=== PATIENT | male | born 1955 | race Caucasian/White ===

== ENCOUNTER 2018-11-27 17:37 | Inpatient (IN) | payer BC, SELFPAY ==
[2018-11-27 18:47] VITALS: BMI 34.5
[2018-11-27] MEDS ORDERED: Ondansetron ODT 4 MG TAB PO PRN (20:23)
[2018-11-27] MEDS ORDERED: Senokot S 8.6-50 MG TAB PO PRN (20:23)
[2018-11-27] MEDS ORDERED: Guaifenesin DM 100-10/5 ML UDCUP PO PRN (20:23)
[2018-11-27] MEDS ORDERED: Ondansetron PF 4 MG/2 ML Vial IVP PRN (20:23)
[2018-11-27] MEDS ORDERED: Acetaminophen 325 MG TAB PO PRN (20:23)
[2018-11-27] MEDS ORDERED: Acetaminophen 650 MG Suppository PR PRN (20:23)
[2018-11-27 21:12] LABS: Band 1 % (5-11); Hemoglobin 17.4 g/dL (14.0-18.0); Lymphocytes 5 % (21-51); MDiff Complete? YES; Mean Corpuscular HGB CONC 32.3 g/dL (32.0-36.0); Mean Corpuscular Hemoglobin 31.3 pg (27.0-31.0); Mean Corpuscular Volume 96.8 fL (78.0-98.0); Mean Platelet Volume 9.3 fL (7.4-10.4); Monocytes 7 % (0-10); Neutrophil 87 % (42-75); Platelet Count 179 thou/uL (130-400); Platelet Morphology Comment Appears Adequate; RBC Distribution Width 12.2 % (11.5-14.5); RBC Morphology Normal; Red Blood Cell (RBC) Count 5.56 mill/uL (4.70-6.10); White Blood Cell (WBC) Count 14.6 thou/uL (4.8-10.8)
[2018-11-27 21:15] LABS: ALT (SGPT) 11 U/L (8-55); AST (SGOT) 13 U/L (5-34); Albumin 3.6 g/dL (3.4-4.8); Alkaline Phosphatase 79 U/L (40-150); Anion Gap 14 mmol/L (10-20); BUN (Urea Nitrogen) 64 mg/dL (8.4-25.7); Bilirubin, Total 0.9 mg/dL (0.2-1.2); Calc. Creatinine Clearance 23 mL/min (70-130); Carbon Dioxide 26 mmol/L (23-31); Chloride 102 mmol/L (98-107); Estimated GFR-MDRD 11; Globulin 2.8 g/dL (2.4-3.5); Glucose 82 mg/dL (80-115); Potassium 4.5 mmol/L (3.5-5.1); Protein, Total 6.4 g/dL (5.8-8.1); Sodium 137 mmol/L (136-145)
[2018-11-27] MEDS: Sodium Chloride 0.9% 1,000 ML IV SCH (22:05)
--- NOTE | 2018-11-28 01:35 | HP ---
CHIEF COMPLAINT: Abdominal pain. PRIMARY CARE PHYSICIAN: None. HISTORY OF PRESENT ILLNESS: Mr. Reid is a 63-year-old male who presented to [facility] in [place], [place] earlier today with complaints of lower abdominal pain, fever and chills since Sunday 5 days ago. He was evaluated in that ER and was found to have acute kidney injury, bilateral nephritis, obstructive uropathy, and leukocytosis. They contacted [facility] doctor, Dr. Madera on the [facility], who agreed to admit the patient for further management. He was then sent over here for admission. Here, his white blood cell count is 14.6. He reports that his abdominal pain is almost all resolved after they put in a Coude and drained his bladder of about 1700 mL per ER records. Here, his creatinine is 5.20. The patient denies any past medical history. Denies having a PCP. Denies having any past medical history. Denies having any allergies. Denies taking any medicine. He does tell me he had a tonsillectomy, adenoidectomy when he was a child and had a broken toe, but that was fit. Currently, on exam, he is in no acute distress and as stated above, feels better after the Thompson was placed, his bladder was decompressed. He denies any back pain. Reports that the pain was all lower abdomen. PAST MEDICAL HISTORY: None. PAST SURGICAL HISTORY: Tonsillectomy and adenoidectomy. FAMILY HISTORY: Denies any significant history contributory to his current admission. SOCIAL HISTORY: Lives at home. Denies any smoking or drug use. Does socially drink, reports about 5 drinks per week. REVIEW OF SYSTEMS: CONSTITUTIONAL: Does report fever and chills for the past 5 days. EYES: Denies any eye pain or any vision changes. ENT: Denies any rhinorrhea or sore throat. CARDIOVASCULAR: Denies chest pain or palpitations. RESPIRATORY: Denies cough or shortness of breath. GI: Does endorse lower abdominal pain. Reports that it would go from the left side to the right side to the middle. Reports that it started 5 days ago on Sunday. Denies any nausea, vomiting, diarrhea, or constipation. : Does report that he had intermittent urinary hesitancy, retention. Reports that he thought he was constipated, had a bowel movement today and urine stream went back to normal. MUSCULOSKELETAL: Denies any back pain, fall, injury, neck pain. SKIN: Denies any rash or skin changes. NEUROLOGIC: Denies dizziness or headache. PHYSICAL EXAMINATION: VITAL SIGNS: Temperature is 97.5, pulse is 101, respiratory rate is 18, pO2 saturations are 97% on room air, and blood pressure is 134/89, CONSTITUTIONAL: The patient appears nontoxic, appears pain free. He is alert and oriented to person, place, and time. HEENT: Head is atraumatic and normocephalic. Eyes; eyelids are normal to inspection. Pupils are equally round and reactive to light. ENT; mouth exam is normal. Mucous membranes are moist. NECK: Normal range of motion. Trachea is midline. RESPIRATORY/CHEST: Breath sounds are clear. Respiratory exam, no findings of respiratory distress. CARDIOVASCULAR: Heart rate, regular rate and rhythm. Heart sounds are normal. ABDOMEN: Currently nontender. Bowel sounds are heard. BACK: Normal inspection. Normal range of motion. No tenderness. EXTREMITIES: Upper extremity; inspection is normal. Normal range of motion. Sensation intact. Radial pulses are equal bilaterally. Lower extremity; normal inspection. Motor strength is normal. Pedal pulses normal bilaterally. NEUROLOGIC: The patient is oriented to person, place, and time. Speech is normal. Gait was not assessed. SKIN: Warm, dry, normal in color. PSYCHIATRIC: The patient has normal affect. PERTINENT LABORATORY DATA: White blood cell count is 14.6, hemoglobin is 17.4, hematocrit is 53.8, and platelet count is 179. BUN is 64, creatinine is 5.20, sodium is 137, potassium 4.5, chloride 102, carbon dioxide 26, gap is 14, estimated GFR is 11, glucose is 82, lactic acid is 1.5, and calcium is 11. Liver enzymes are unremarkable. IMAGING STUDIES: CT findings from [facility]; CT of abdomen and pelvis without IV contrast show significant left perinephric stranding, bilateral pelvocaliectasis, a tiny 1 to 2 mm nonobstructing calculus is present in the upper pole of the left kidney. Note is made of periureteral stranding around the left ureter and could represent forniceal rupture with tracking of fluid down to the proximal and mid left ureter. Bladder is distended with a bladder dome extending outside of the pelvis. Multiple diverticula are seen in the sigmoid colon and distal descending colon. Hepatic cyst. Impression was partial obstructive uropathy of the left upper kidney tract, likely due to the left UP junction narrowing, suspected narrowing of the right UP junction is also raised. Stranding could be inflammatory from left palm nephritis. Please correlate clinically. Tiny nonobstructing calculi in left kidney, enlarged prostate with distended bladder, diverticulosis, hepatic cyst. ASSESSMENT AND PLAN: 1. Acute kidney injury. Nephritis. Bilateral obstructive uropathy. Leukocytosis. Worrisome for sepsis with a white blood cell count of 14.6. The patient was given IV fluids, Toradol, and Rocephin at [facility]. We will continue IV hydration. We will consult Urology and Nephrology. We will trend the labs in the morning. We will continue Rocephin that was given today and await recommendations from Nephrology and Urology. 2. Gastrointestinal and deep venous thrombosis prophylaxis will be started. 3. Hospital course will depend on clinical findings. Job ID: [id number]
[2018-11-28 05:45] LABS: #Basophils 0.1 thou/uL (0.0-0.2); #Eosinphils 0.1 thou/uL (0.0-0.7); #Lymphocytes 1.3 thou/uL (1.20-3.40); #Monocytes 1.4 thou/uL (0.11-0.59); #Neutrophils 7.3 thou/uL (1.40-6.50); %Basophils 0.8 % (0.0-1.0); %Eosinophils 1.3 % (0.0-10.0); %Lymphocytes 12.9 % (21.0-51.0); %Monocytes 13.9 % (0.0-10.0); %Neutrophils 71.2 % (42.0-75.0); Hemoglobin 15.7 g/dL (14.0-18.0); Mean Corpuscular HGB CONC 32.6 g/dL (32.0-36.0); Mean Corpuscular Hemoglobin 31.4 pg (27.0-31.0); Mean Corpuscular Volume 96.5 fL (78.0-98.0); Mean Platelet Volume 9.6 fL (7.4-10.4); Platelet Count 174 thou/uL (130-400); RBC Distribution Width 12.1 % (11.5-14.5); Red Blood Cell (RBC) Count 5.01 mill/uL (4.70-6.10); White Blood Cell (WBC) Count 10.2 thou/uL (4.8-10.8)
[2018-11-28 06:06] LABS: Anion Gap 12 mmol/L (10-20); BUN (Urea Nitrogen) 47 mg/dL (8.4-25.7); Calc. Creatinine Clearance 51 mL/min (70-130); Calcium 9.6 mg/dL (7.8-10.44); Carbon Dioxide 27 mmol/L (23-31); Chloride 105 mmol/L (98-107); Estimated GFR-MDRD 28; Glucose 76 mg/dL (80-115); Potassium 4.1 mmol/L (3.5-5.1); Sodium 140 mmol/L (136-145)
[2018-11-28 06:19] LABS: Bilirubin Negative (Negative); Blood, Urine Large (Negative); Clarity CLEAR (Clear); Glucose, Urine (Dipstick) Negative (Negative); Leukocyte Moderate (Negative); Nitrite Negative (Negative); Protein, Urine (Dipstick) 30 mg/dL (Neg-Trace); Specific Gravity, Urine 1.016 (1.002-1.036); Urobilinogen 0.2 mg/dL (0.2-1.0)
[2018-11-28 06:21] LABS: Bacteria/HPF None Seen HPF (None Seen); Hyaline Casts/LPF 4-6 HYALINE CAST LPF (0-3 Hyaline); Pathc Cast-AUWi Flag 1.08 (0-2.49); RBC/HPF GREATER THAN 50-TNTC HPF (0-3); Squamous Epithelial 0-3 HPF (0-3); WBC/HPF 21-50 HPF (0-3)
[2018-11-28] MEDS: Sodium Chloride 0.9% 1,000 ML IV SCH ×2 (07:38→18:19)
[2018-11-28] MEDS ORDERED: Famotidine/PF 20 mg/2ml Vial SLOW IVP SCH (09:00)
[2018-11-28] MEDS: Senokot S 8.6-50 MG TAB PO SCH ×2 (10:33→21:15)
[2018-11-28] MEDS: Polyethylene Glycol 3350 17 GM Packet PO SCH (10:33)
--- NOTE | 2018-11-28 12:12 | CON ---
DATE OF CONSULTATION: REASON FOR CONSULTATION: Elevated creatinine. HISTORY OF PRESENT ILLNESS: The patient is a 63-year-old gentleman, who presented to the hospital after noting abdominal distention. The patient was noted to have obstructive uropathy. A Thompson catheter was placed and the patient started making urine. The patient denies any headache, numbness, tingling, or weakness. Denies any nausea, vomiting, or chest pain. PAST MEDICAL HISTORY: Significant for normal physical examination, history of tonsillectomy and adenoidectomy. SOCIAL HISTORY: No alcohol or drug use. FAMILY HISTORY: Negative for ESRD. ALLERGIES: REVIEWED. HOME MEDICATIONS: List reviewed. REVIEW OF SYSTEMS: 15-point review of system was performed and negative except for what was noted above. GENERAL: HEAD: NECK: No swelling or lumps. NOSE: No epistaxis or discharge. EYES: No diplopia or pain. RESPIRATORY: CARDIOVASCULAR: GASTROINTESTINAL: /[employer]TY INSURANCE CLAIM ADJUSTER: MUSCULOSKELETAL: No joint pain. NEUROPSYCHIATRIC SYSTEMS: No suicidal ideation. No ideation. SKIN: Denies any rash or ulcer. CONSTITUTIONAL: No fever or chills. PHYSICAL EXAMINATION: GENERAL: The patient is awake and alert. VITAL SIGNS: Afebrile, pulse 101, breathing 16, blood pressure 131/76. GENERAL APPEARANCE AND MENTAL STATUS: Fair. HEAD/NECK: Normocephalic. Atraumatic. EYES: EOMI. No deformity. EARS: Clear. No ulcers. NOSE: Intact. No lesions. MOUTH: Clear. No discharge. THROAT: Clear. No exudate. LUNGS: Clear. No crackles. CARDIAC: S1, S2. No rub. ABDOMEN: Benign. Bowel sounds positive. GENITALIA/RECTUM: Thompson absent. BACK/EXTREMITIES: Edema 0+. NEUROLOGICAL: Alert and motor intact. SKIN: LYMPHATICS: LABORATORY DATA: Labs show creatinine has improved to 2.3. IMPRESSION: 1. Acute kidney injury, improved. 2. Chronic kidney disease, stage 4, stable. 3. Hypertension, stable. 4. Anemia. No indication for dialysis. The patient has a history of nephrolithiasis. I would recommend extensive hydration. Job ID: [id number]
--- NOTE | 2018-11-28 12:13 | ULT ---
BILATERAL RENAL ULTRASOUND COMPLETE: History: Acute kidney insufficiency. FINDINGS: Right kidney measures 10.5 x 6.3 x 5.7 cm. Left kidney measures 11.1 x 6.1 x 5.7 cm. Tiny echogenic focus in the mid left kidney cortex medullary junction, possibly a very tiny calculus or vascular calcification. Bladder is empty with a Thompson catheter in place. No hydronephrosis. IMPRESSION: No hydronephrosis. Tiny echogenic focus in the right kidney, possibly a small calculus or vascular ca lcification. POS: [facility]
--- NOTE | 2018-11-28 12:25 | CON ---
DATE OF CONSULTATION: 11/28/2018 REASON FOR CONSULTATION: Consultation requested for bladder outlet obstruction with acute renal failure. HISTORY OF PRESENT ILLNESS: The patient is a 63-year-old male, who was in his usual state of health until he noticed that he was having more difficulty with urination and lower abdominal pain and presented to an urgent care for this reason, where he was found to have significant urinary retention and renal failure and transferred to [place]. Normally, he does admit that he had a slow stream for quite a while now with hesitancy, incomplete emptying and straining. He has frequency q.1 hour and nocturia x2. He denies any leakage. He has never had prior hematuria, although the Urgent Care where he was recorded hematuria when the catheter was placed. He has no history of stones or urinary tract infections. He denies any burning or cloudy or malodorous urine. However, there is definitely concern for infection upon presentation. PAST MEDICAL HISTORY: Insignificant as he has no concerns for hypertension or high cholesterol. He does not have a primary care doctor, but he has had an annual wellness check through his work that also included checking his cholesterol. PAST SURGICAL HISTORY: Tonsils and adenoids. MEDICINES: None daily. ALLERGIES: NONE. SOCIAL HISTORY: He drinks less than 5 drinks a week. He does not smoke or use drugs. He walks his dog regularly and feels like he exercises significantly. REVIEW OF SYSTEMS: Reveals he has never had a colonoscopy. He has had no chest pain or shortness of breath. No cough. No diarrhea. He has had a little bit of constipation, but had a bowel movement in last 48 hours and has been eating much since then. He has never been screened for prostate cancer. He has had no strokes or MIs. No numbness or tingling. He did have increased gassiness with pelvic pain. He denied any back pain. He has had some nausea with vomiting and concern for subjective fever, chills, and just overall feeling unwell. FAMILY HISTORY: Mother at 85. She had a stroke 10 years prior, but ultimately fell, had a blood clot and then PE, and . Father had malaria, chronically unwell with that, but ultimately of an aneurysm at the age of 70. He did have skin cancer, but neither mother or father had any other cancers. PHYSICAL EXAMINATION: GENERAL: He is lying comfortably in the bed and is alert and oriented. VITAL SIGNS: T-max 97.8, which is current. Heart rate in the 90s, saturating 98% on room air with blood pressure 112/76. There is no report of urine output since he got there. However, there was 1.3 L of dark bloody urine recorded from the Urgent Care when the catheter was placed. Currently, he has clear yellow urine in both the bag and tubing. The catheter was kinked and secured in a kinked fashion, so I unkinked it and secured it in the appropriate fashion. NECK: He had no JVD. He had no scleral icterus. He had no jaundice. HEART: Regular rate and rhythm. Did not appear to be tachycardic on my examination. Clear to auscultation bilaterally. He had no CVA tenderness. ABDOMEN: Soft, nondistended, nontender. : Testes present bilaterally. Phallus was circumcised without lesions. Catheter was in place with blood around the meatus and the catheter itself, but none in the tubing. He had no lower extremity edema. Digital rectal exam revealed an enlarged and firm prostate, right slightly more firm than the left, but there was no actual nodules. No sidewall fixation. LABORATORY VALUES: Reveal normal CBC. BUN and creatinine initially were 64 and 5.20, that have come down to 47 and 2.35. Urinalysis from today after he got Rocephin yesterday showed 21-50 wbc's, too numerous to count rbc's, no bacteria and 0-2 squamous cells. I do not have urinalysis from the Urgent Care and hopefully , we can try to get that. I asked the nurse to look into that and culture as I suspect the culture from today's sample will be negative. He has no PSAs. CT scan from 11/27/2018 without contrast was reviewed personally. Unfortunately , half of the images were gone as I scrubbed through all of them, only a portion of them were notable. He had bilateral hydronephrosis with perinephric stranding, left greater than right without any obvious stone other than a raghav in the left upper pole. He had a very distended bladder. I was not able to evaluate the prostate on this, but it did not appear sticking to the base of the bladder. By report, there was no concern for any ureteral stones or obstruction from stone. ASSESSMENT: We have a 63-year-old male with acute renal failure secondary to bladder outlet obstruction, secondary to BPH with a digital rectal exam does reveal a significantly firm prostate. Reviewed tamsulosin, finasteride, and starting these now as well as given him a voiding trial after his bladder has had rest and that would be as an outpatient. We will check a PSA and expect that it will be elevated both from infection and retention, and certainly would need to follow up on this and his digital rectal exam. We briefly discussed stones and prevention as he has a raghav of stone in the left upper pole. There is a chance that with his postobstructive diuresis and hydroureter, he may even pass this at this time without even knowing it. Start tamsulosin and finasteride. Monitor for now with indwelling Thompson. Job ID: [id number] MTDD
[2018-11-28] MEDS: cefTRIAXone\\ROCEPHIN 1 GM in Sodium Chloride 0.9% 100 ML IVPB SCH (14:00)
[2018-11-28] MEDS: Tamsulosin HCl 0.4 MG CAP PO SCH (21:16)
--- NOTE | 2018-11-28 21:47 | PDOC.PN ---
- Subjective Encounter Start Date: 11/28/18 Encounter Start Time: 10:30 Patient seen and examined for ELMER. No N/V. No new complaints. No overnight events - Objective MAR Reviewed: Yes Vital Signs & Weight: Vital Signs (12 hours) Temp Pulse Resp BP Pulse Ox 11/28/18 19:40 98.7 F 91 16 105/72 92 L 11/28/18 18:00 95 11/28/18 16:30 97.2 F L 86 18 129/86 95 11/28/18 15:34 97.8 F 88 16 110/79 96 11/28/18 11:27 97.3 F L 94 16 124/85 100 Weight Admit Weight 247 lb 12.8 oz Weight 247 lb 12.8 oz I&O: 11/27/18 11/28/18 11/29/18 06:59 06:59 06:59 Intake Total 240 Output Total 700 Balance -460 Result Diagrams: 11/28/18 04:38 11/28/18 04:38 EKG Reviewed by me: Yes (Tele SR) Phys Exam - Physical Examination Constitutional: NAD Respiratory: no wheezing, no rhonchi Cardiovascular: RRR, no rub Gastrointestinal: soft, non-tender, positive bowel sounds Musculoskeletal: no edema Dx/Plan - Plan DVT proph w/SCDs 1. ELMER due to bladder outlet obstruction 2. Sepsis due to UTI 3. BPH/Urinary retention 4. Obesity BMI 34.6 PLAN: Cont Ceftriaxone Flomax/Finasteride started AM labs Transfer to medical Review of Systems - Review of Systems Respiratory: negative: Cough, Dry, Shortness of Breath, Hemoptysis, SOB with Excertion, Pleuritic Pain, Sputum, Wheezing Cardiovascular: negative: chest pain, palpitations, orthopnea, paroxysmal nocturnal dyspnea, edema, light headedness, other - Medications/Allergies Allergies/Adverse Reactions: Allergies Allergy/AdvReac Type Severity Reaction Status Date / Time No Known Allergies Allergy Unverified 11/28/18 09:45 Medications: Current Medications Acetaminophen (Tylenol) 650 mg PO Q4H PRN PRN Reason: Headache/Fever/Mild Pain (1-3) Acetaminophen (Tylenol) 650 mg MN Q4H PRN PRN Reason: Headache/Fever/Mild Pain (1-3) Finasteride (Proscar) 5 mg PO DAILY VANNESSA Guaifenesin/Dextromethorphan (Robitussin Dm) 15 ml PO Q4H PRN PRN Reason: Cough Sodium Chloride (Normal Saline 0.9%) 1,000 mls @ 100 mls/hr IV .Q10H [facility] Last Admin: 11/28/18 18:19 Dose: 1,000 mls Ceftriaxone Sodium 1 gm/ (Sodium Chloride) 100 mls @ 200 mls/hr IVPB Q24HR [facility] Last Admin: 11/28/18 14:00 Dose: 100 mls Ondansetron HCl (Zofran Odt) 4 mg PO Q6H PRN PRN Reason: Nausea/Vomiting Ondansetron HCl (Zofran) 4 mg IVP Q6H PRN PRN Reason: Nausea/Vomiting Polyethylene Glycol (Miralax) 17 gm PO DAILY [facility] Last Admin: 11/28/18 10:33 Dose: Not Given Senna/Docusate Sodium (Senokot S) 2 tab PO BID PRN PRN Reason: Constipation Senna/Docusate Sodium (Senokot S) 1 tab PO BID [facility] Last Admin: 11/28/18 21:15 Dose: Not Given Sodium Chloride (Flush - Normal Saline) 10 ml IVF Q12HR [facility] Last Admin: 11/28/18 21:17 Dose: Not Given Sodium Chloride (Flush - Normal Saline) 10 ml IVF PRN PRN PRN Reason: Saline Flush Tamsulosin HCl (Flomax) 0.4 mg PO BID [facility] Last Admin: 11/28/18 21:16 Dose: 0.4 mg
[2018-11-29] MEDS: Sodium Chloride 0.9% 1,000 ML IV SCH ×2 (06:35→14:46)
[2018-11-29 07:14] LABS: Anion Gap 9 mmol/L (10-20); BUN (Urea Nitrogen) 21 mg/dL (8.4-25.7); Calc. Creatinine Clearance 140 mL/min (70-130); Calcium 8.4 mg/dL (7.8-10.44); Carbon Dioxide 28 mmol/L (23-31); Chloride 107 mmol/L (98-107); Estimated GFR-MDRD 90; Glucose 86 mg/dL (80-115); Magnesium 1.6 mg/dL (1.6-2.6); Potassium 3.8 mmol/L (3.5-5.1); Sodium 140 mmol/L (136-145)
[2018-11-29] MEDS: Tamsulosin HCl 0.4 MG CAP PO SCH (08:44)
[2018-11-29] MEDS: Senokot S 8.6-50 MG TAB PO SCH (08:45)
[2018-11-29] MEDS: Polyethylene Glycol 3350 17 GM Packet PO SCH (08:45)
[2018-11-29] MEDS ORDERED: Finasteride 5 MG TAB PO SCH (09:00)
--- NOTE | 2018-11-29 12:39 | PRG ---
DATE OF SERVICE: 11/29/2018 SUBJECTIVE: A 63-year-old gentleman, being seen for acute kidney injury. The patient denied nausea, vomiting, or chest pain. OBJECTIVE: See above. CONSTITUTIONAL: Awake, alert, in no acute distress. VITAL SIGNS: Afebrile. Pulse 71, breathing 16, blood pressure 121/84. GENERAL APPEARANCE AND MENTAL STATUS: Fair. HEAD/NECK: Normocephalic. Atraumatic. EYES: EOMI. No deformity. EARS: Clear. No ulcers. NOSE: Intact. No lesions. MOUTH: Clear. No discharge. THROAT: Clear. No exudate. LUNGS: Clear. No crackles. CARDIAC: S1, S2. No rub. ABDOMEN: Benign. Bowel sounds positive. GENITALIA/RECTUM: Thompson absent. BACK/EXTREMITIES: Edema 0+. NEUROLOGICAL: Alert and motor intact. SKIN: LYMPHATICS: LABORATORY DATA: Hemoglobin 15.7. Creatinine 0.8. ASSESSMENT AND PLAN: 1. Acute kidney injury . 2. Hypertension, stable. 3. Anemia, stable. 4. Medication based on GFR, appropriate. I will sign off on this patient. The patient will follow up to see me in one month. Job ID: [id number]
[2018-11-29] MEDS: cefTRIAXone\\ROCEPHIN 1 GM in Sodium Chloride 0.9% 100 ML IVPB SCH (15:15)
--- NOTE | 2018-11-29 16:28 | PRG ---
DATE OF SERVICE: 11/29/2018 SUBJECTIVE: The patient has done well overnight. He has no complaints. Catheter is draining fine. We reviewed his PSA, which is considerably concerning the level of 39.1. I have seen levels in the 30s with prostatitis, but combined with his rectal exam, there is definitely the possibility that this could be elevated for cancer. However, in the way to follow up on that, I would treat him as if he has prostatitis and give him four weeks of antibiotics and then repeat the PSA thereafter ensuring that it is coming down significantly and if not, then we would need to pursue prostate biopsy as an outpatient. I discussed all of this with him in detail and all questions were answered. PHYSICAL EXAMINATION: VITAL SIGNS: He has been afebrile. His vitals have been stable. He is saturating 90% to 94% on room air. He put out 2950 over the last 24 hours. Catheter is draining yellow urine. There is still some blood around the meatus of the catheter, but otherwise draining fine. I reviewed leg bag care with him if he would like to switch with that as an outpatient or change between that. LABORATORY DATA: His creatinine come down to normal, which is now 0.86. As previously mentioned, his PSA is 39.10. I was able to see that the urinalysis was checked in the Urgent Care and the dip showed negative nitrites, negative leukocyte esterase, negative protein, and moderate blood, so I doubt it was even sent for culture because there is no concern at that time for infection so there may not have been a significant infection upon presentation. ASSESSMENT: We have a 63-year-old gentleman admitted with acute renal failure secondary to bladder outlet obstruction related to either BPH with prostatitis or possible prostate cancer. Continue tamsulosin twice a day, finasteride once a day, Omnicef for four weeks, and I have written all those scripts in the chart. He will go home with the catheter and follow up in the office for a voiding trial and cystoscopy. I have communicated all this to him and left those instructions in the chart. Job ID: [id number]
[2018-11-29 17:11] VITALS: BP 134/87; TEMP 98.3
--- NOTE | 2018-11-30 10:22 | DIS ---
DATE OF ADMISSION: 11/27/2018 DATE OF DISCHARGE: 11/29/2018 DISCHARGE DISPOSITION: Home. FOLLOWUP: 1. Follow up with primary care physician in 1 week. The patient does not have a primary care physician at this time. 2. The patient was advised to follow up with primary urologist, Dr. Leatha Delgado as scheduled. 3. Follow up with Nephrology, Dr. Harris after one month. ALLERGIES: NO KNOWN DRUG ALLERGIES. SIGNIFICANT LABORATORY DATA: Creatinine on admission 5.2, at discharge 0.86. PSA 39.1. WBC on admission 14.6, at discharge 10.2. Urine culture has been negative. Urine culture from the [facility] is unavailable. The patient was seen on the day of discharge and denies any new complaints. BRIEF HOSPITAL COURSE: The patient is a 63-year-old male, who presented to [facility] with lower abdominal pain, fever, and chills of 5-day duration. His workup at [facility] was consistent with acute kidney injury. CT scan of the abdomen at [facility] was consistent with obstructive uropathy along with left perinephric stranding. A Thompson catheter was placed. He was admitted at this facility on the 11/27/2018. He was evaluated by Nephrology as well as Urology. His creatinine has improved to 0.86. He will be discharged home with a Thompson catheter. Bilateral renal ultrasound was negative for hydronephrosis. He will be discharged home on Omnicef twice a day to complete a 4-week course. Flomax 0.4 mg twice a day and finasteride has also been started. He was advised to discontinue nephrotoxic agent including ibuprofen. He appears stable for discharge. FINAL DIAGNOSES: 1. Acute kidney injury secondary to obstructive uropathy. 2. Urinary retention, status post Thompson catheter placement. 3. Benign prostatic hypertrophy. 4. Sepsis secondary to urinary tract infection/acute pyelonephritis. 5. Obesity with a BMI of 34.6. 6. Elevated PSA. PLAN: Plan of care was discussed with the patient in detail. He stated understanding. Job ID: [id number]
== END 2018-11-29 17:19 | disposition home or self-care (01) | DRG 872 ==
LOC: 2NO 18:30 → T4-A 11-28 16:35
PROVIDERS: ADMIT Emergency Medicine; ATTEND Emergency Medicine
DX: A41.9 Sepsis, unspecified organism (principal); N17.9 Acute kidney failure, unspecified; N18.4 Chronic kidney disease, stage 4 (severe); N39.0 Urinary tract infection, site not specified; N32.0 Bladder-neck obstruction; I12.9 Hypertensive chronic kidney disease with stage 1 through stage 4 chronic kidney disease, or unspecified chronic kidney disease; D64.9 Anemia, unspecified; N40.1 Benign prostatic hyperplasia with lower urinary tract symptoms; R33.8 Other retention of urine; E66.9 Obesity, unspecified; Z90.89 Acquired absence of other organs; Z68.34 Body mass index [BMI] 34.0-34.9, adult
CPT/HCPCS: 36415; 76770; 80048; 80053; 81001; 83605; 83735; 85025; 87086; 90471; 90686; G0008; G0103; J0696; J7050; S0028

== ENCOUNTER 2019-03-14 11:17 | Outpatient (CLI) | payer BC ==
--- NOTE | 2019-03-17 16:49 | EKG ---
Test Reason : Blood Pressure : / mmHG Vent. Rate : 079 BPM Atrial Rate : 079 BPM P-R Int : 168 ms QRS Dur : 092 ms QT Int : 382 ms P-R-T Axes : 021 -30 014 degrees QTc Int : 438 ms Normal sinus rhythm Left axis deviation RSR' or QR pattern in V1 suggests right ventricular conduction delay Inferior infarct , age undetermined Possible Anterior infarct , age undetermined Abnormal ECG Confirmed by ISACC DALY ([id number]) on 03/17/2019 4:49:20 PM Referred By: EMEKA Confirmed By:ISACC DALY
== END 2019-03-14 11:18 | disposition home or self-care (01) ==
LOC: LABBT 11:17
PROVIDERS: ATTEND Urology
DX: Z01.818 Encounter for other preprocedural examination (principal); R33.9 Retention of urine, unspecified; N40.0 Benign prostatic hyperplasia without lower urinary tract symptoms; R97.20 Elevated prostate specific antigen [PSA]; N21.0 Calculus in bladder; N13.8 Other obstructive and reflux uropathy; N20.0 Calculus of kidney
CPT/HCPCS: 93005; 93010

== ENCOUNTER 2019-03-20 08:26 | Observation (INO) | payer BC ==
[2019-03-14 11:31] VITALS: BMI 34.2
[2019-03-14 12:24] LABS: Hemoglobin 15.4 g/dL (14.0-18.0); Mean Corpuscular Hemoglobin 32.1 pg (27.0-31.0); Mean Corpuscular Volume 97.2 fL (78.0-98.0); Mean Platelet Volume 9.5 fL (7.4-10.4); Platelet Count 161 thou/uL (130-400); RBC Distribution Width 12.3 % (11.5-14.5); Red Blood Cell (RBC) Count 4.79 mill/uL (4.70-6.10); White Blood Cell (WBC) Count 5.5 thou/uL (4.8-10.8)
[2019-03-14 12:31] LABS: PTT 35.5 SEC (22.9-36.1); Prothrombin Time 13.4 SEC (12.0-14.7)
[2019-03-14 12:44] LABS: Anion Gap 11 mmol/L (10-20); BUN (Urea Nitrogen) 12 mg/dL (8.4-25.7); Calc. Creatinine Clearance 0 mL/min (70-130); Calcium 8.8 mg/dL (7.8-10.44); Carbon Dioxide 26 mmol/L (23-31); Chloride 107 mmol/L (98-107); Estimated GFR-MDRD 83; Glucose 118 mg/dL (80-115); Potassium 4.4 mmol/L (3.5-5.1); Sodium 140 mmol/L (136-145)
[2019-03-14 13:47] LABS: Bilirubin Negative (Negative); Blood, Urine Moderate (Negative); Glucose, Urine (Dipstick) Negative (Negative); Leukocyte Trace (Negative); Nitrite Positive (Negative); Protein, Urine (Dipstick) 30 mg/dL (Neg-Trace); Urobilinogen 0.2 mg/dL (Less than 2)
[2019-03-14 13:48] LABS: Clarity Cloudy (Clear)
[2019-03-14 13:57] LABS: Bacteria/HPF 2+ HPF (None Seen); Squamous Epithelial 0-3 HPF (0-3)
[2019-03-20] MEDS ORDERED: Lidocaine 1% (PF) 30 ML VIAL ONE (09:59)
[2019-03-20] MEDS ORDERED: Heparin 0 ML ONE (09:59)
[2019-03-20] MEDS ORDERED: Levofloxacin 500 mg/D5W 100 ml Premix Bag ONE (10:11)
[2019-03-20] MEDS ORDERED: Midazolam HCl 2 mg/2 ml Vial ONE ×2 (10:23→12:33)
[2019-03-20] MEDS ORDERED: Fentanyl 100 MCG/2 ML VIAL ONE ×2 (10:23→10:28)
[2019-03-20] MEDS ORDERED: HYDROmorphone 0.5 MG/0.5 ML SYRINGE ONE (10:28)
[2019-03-20] MEDS ORDERED: diphenhydrAMINE 50 MG/ML VIAL ONE (10:33)
[2019-03-20] MEDS ORDERED: Hydrocortisone Sod Succ/PF 100 mg/2 ml Vial ONE (10:48)
[2019-03-20] MEDS ORDERED: Nitroglycerin 100MG/250ML BOT 0 ML ONE (10:48)
[2019-03-20] MEDS ORDERED: Morphine 4 MG/ML VIAL SLOW IVP PRN (11:59)
[2019-03-20] MEDS ORDERED: Mag-Al 1200 mg/1200 mg/30 ML UDCUP PO PRN (11:59)
[2019-03-20] MEDS ORDERED: Oxybutynin 5 MG TAB PO PRN (11:59)
[2019-03-20] MEDS ORDERED: Ondansetron PF 4 MG/2 ML Vial IVP PRN (11:59)
[2019-03-20] MEDS ORDERED: hydrALAZINE 20 MG/ML VIAL SLOW IVP PRN (11:59)
[2019-03-20] MEDS ORDERED: Acetaminophen 500 MG TAB PO PRN (11:59)
[2019-03-20] MEDS ORDERED: Bisacodyl 10 MG SUPP PR PRN (11:59)
[2019-03-20] MEDS ORDERED: diphenhydrAMINE 25 MG CAP PO PRN (11:59)
[2019-03-20] MEDS ORDERED: traMADol HCl 50 MG TAB PO PRN (12:01)
[2019-03-20] MEDS ORDERED: Albumin 5% 500 ML ONE (12:33)
[2019-03-20] MEDS ORDERED: Fentanyl 250 MCG/5 ML VIAL ONE (12:33)
[2019-03-20] MEDS ORDERED: Phenylephrine HCL 10 MG/ML VIAL ONE (12:39)
--- NOTE | 2019-03-20 12:48 | OP ---
DATE OF PROCEDURE: 03/20/2019 SERVICE: Urology. PREOPERATIVE DIAGNOSES: Benign prostatic hypertrophy with obstruction and elevated PSA. POSTOPERATIVE DIAGNOSES: Benign prostatic hypertrophy with obstruction and elevated PSA. PROCEDURE PERFORMED: Transurethral resection of the prostate. INDICATION FOR PROCEDURE: Mr. Reid is a 63-year-old white male, who initially presented to me with elevated PSA and significant BPH with urinary symptoms. He was a patient of Dr. Delgado. We had discussed prostate biopsy versus proceeding directly with TURP and he states he would rather do the prostate surgery first as his urinary symptoms are extremely bothersome to him. He does understand that there is a high possibility he maybe diagnosed with prostate cancer and he states that he will be willing to treat this after TURP despite knowing that this may limit his options or change outcomes based on having the previous TURP. Despite this, he would still like to proceed forward with TURP first. We discussed resection over vaporization since we would get prostate tissue. He is in agreement with the plan with all risks and benefits discussed. DESCRIPTION OF PROCEDURE: After identification of armband and verification of consent, the patient was brought back to the operating room, where he underwent general anesthesia with LMA. He was placed in the dorsal lithotomy position and prepped and draped in usual sterile fashion. After appropriate time-out, a lubricated 26-[place] resectoscope sheath was passed with ease through the urethra into the bladder. There was a large prostate median lobe. Both ureters were identified in orthotopic location. The visual obturator was switched out for the bipolar prostate resectoscope loop. The ureters were marked distal and medial to the ureteral orifices for later identification. Resection was started on the median lobe and shaved out until it was flushed with the bladder. The intervening prostate tissue was also resected until completely removed. The prostate was then resected circumferentially until it was wide open. Prostate was resected close to, but not up to the capsule of the prostate. Meticulous hemostasis was performed, but an after complete resection, the prostate channel was wide open and there was no bleeding. The prostate chips were evacuated with the Ellik evacuator. All chips were removed through a combination of the Ellik or the resectoscope with loop. Both ureters were identified at the end of the case in the orthotopic location unharmed. The prostate itself was re-cauterized to ensure complete hemostasis, and then, the resectoscope withdrawn. A 22-[place] three-way Thompson catheter was advanced with ease into the bladder. A 30 mL of sterile water was placed into the balloon. CBI was initiated. The patient was then awakened, taken to PACU for recovery in stable condition. COMPLICATIONS: None. ESTIMATED BLOOD LOSS: Minimal. RETAINED TUBES AND DRAINS: A 22-[place] three-way Thompson catheter on CBI. SPECIMENS: Prostate chips. DISPOSITION: The patient will be kept in the hospital overnight for CBI. We will plan a void trial in the morning and discharge subsequently. Job ID: [id number]
[2019-03-20] MEDS ORDERED: Ondansetron HCl/PF 4 MG/2 ML Vial IVP PRN (13:10)
[2019-03-20] MEDS ORDERED: PACU-Morphine 4MG/ML VIAL SLOW IVP PRN (13:10)
[2019-03-20] MEDS ORDERED: Promethazine HCl 25 MG/ML VIAL IM PRN (13:10)
[2019-03-20] MEDS ORDERED: HYDROmorphone 2 MG/ML VIAL SLOW IVP PRN (13:10)
[2019-03-20] MEDS ORDERED: Promethazine HCl 25 MG/ML VIAL SLOW IVP PRN (13:10)
[2019-03-20] MEDS ORDERED: Ondansetron PF 4 MG/2 ML Vial ONE (14:04)
[2019-03-20] MEDS ORDERED: Lidocaine 1% PF 5 ML VIAL ONE (14:04)
[2019-03-20] MEDS ORDERED: PHENYLEPHRINE-NS 100 MCG/ML 10 ML SYRINGE ONE (14:04)
[2019-03-20] MEDS ORDERED: PROPOFOL 200 MG/20 ML VIAL ONE (14:04)
[2019-03-20] MEDS ORDERED: Dexamethasone 20 MG/5 ML VIAL ONE (14:04)
[2019-03-20] MEDS ORDERED: ePHEDrine 50 MG/ML VIAL ONE (14:04)
[2019-03-20] MEDS: Docusate 100 MG CAP PO SCH (21:21)
[2019-03-21 04:27] LABS: #Basophils 0.1 thou/uL (0.0-0.2); #Eosinphils 0.2 thou/uL (0.0-0.7); #Lymphocytes 1.6 thou/uL (1.20-3.40); #Monocytes 0.8 thou/uL (0.11-0.59); #Neutrophils 4.1 thou/uL (1.40-6.50); %Basophils 1.1 % (0.0-1.0); %Eosinophils 2.5 % (0.0-10.0); %Lymphocytes 23.9 % (21.0-51.0); %Monocytes 11.3 % (0.0-10.0); %Neutrophils 61.3 % (42.0-75.0); Hemoglobin 13.7 g/dL (14.0-18.0); Mean Corpuscular HGB CONC 32.2 g/dL (32.0-36.0); Mean Corpuscular Hemoglobin 30.9 pg (27.0-31.0); Mean Platelet Volume 9.5 fL (7.4-10.4); Platelet Count 151 thou/uL (130-400); RBC Distribution Width 12.2 % (11.5-14.5); Red Blood Cell (RBC) Count 4.42 mill/uL (4.70-6.10); White Blood Cell (WBC) Count 6.6 thou/uL (4.8-10.8)
[2019-03-21 05:17] LABS: Anion Gap 10 mmol/L (10-20); BUN (Urea Nitrogen) 15 mg/dL (8.4-25.7); Calc. Creatinine Clearance 150 mL/min (70-130); Calcium 8.4 mg/dL (7.8-10.44); Carbon Dioxide 26 mmol/L (23-31); Chloride 107 mmol/L (98-107); Estimated GFR-MDRD Greater than 90; Glucose 81 mg/dL (80-115); Potassium 3.8 mmol/L (3.5-5.1); Sodium 139 mmol/L (136-145)
[2019-03-21] MEDS ORDERED: Famotidine 20 MG TAB PO SCH (09:00)
[2019-03-21] MEDS: Docusate 100 MG CAP PO SCH (09:32)
--- NOTE | 2019-03-21 15:20 | PRG ---
DATE OF SERVICE: 03/21/2019 SUBJECTIVE: The patient states he is doing fine. No complaints. No bladder spasms. OBJECTIVE: VITAL SIGNS: Temperature 98.1, pulse 77, respirations 16, blood pressure 142/93, and saturation is 95% on room air. GENERAL: No apparent distress. Communicative and alert. CARDIOVASCULAR: Regular rate and rhythm. ABDOMEN: Soft, nontender, and nondistended. : Thompson catheter in place with clear urine. EXTREMITIES: SCDs in place. LABORATORY EVALUATION: Full set of labs are in the [facility] system, which I have reviewed. Of note, hemoglobin 13.7. Creatinine is 0.79. ASSESSMENT AND PLAN: A 63-year-old white male, status post transurethral resection of the prostate, postop day #1. CBI is off, and urine looks good. We will plan a void trial. If serial urine collections clear, the patient can go home. He will follow up with me on an outpatient basis. I have gone over all of his discharge instructions and medications with him. Job ID: [id number]
[2019-03-21 16:53] VITALS: BP 145/87; TEMP 97.8
== END 2019-03-21 17:14 | disposition home or self-care (01) ==
LOC: SDC 08:26 → INTOOBSV 11:59 → OBSVTOIN 11:59 → SURG B 11:59 → CCU 14:49 → SURG B 14:53
PROVIDERS: ADMIT Urology; ATTEND Urology
PROC: 0VT08ZZ Resection of Prostate, Via Natural or Artificial Opening Endoscopic (ICD-10-PCS; principal; 2019-03-21)
DX: C61 Malignant neoplasm of prostate (principal); N40.1 Benign prostatic hyperplasia with lower urinary tract symptoms
CPT/HCPCS: 36415; 51702; 80048; 81001; 85025; 85027; 85610; 85730; 86850; 86900; 86901; 87077; 87086; 87186; 88305; 88341; 88342; G0378; J1100; J1170; J1200; J1642; J1644; J1720; J1956; J2001; J2250; J2370; J2405; J2704; J3010; J3490; P9045

== ENCOUNTER 2019-05-06 08:03 | Outpatient (CLI) | payer BC ==
--- NOTE | 2019-05-06 15:28 | MRI ---
MRI OF THE PROSTATE WITHOUT AND WITH CONTRAST: HISTORY: Prostate cancer. TECHNIQUE: Multiplanar, multisequence MR images were obtained in the prostate without and with IV contrast. FINDINGS: There is moderate hypertrophy of the central gland of the prostate consistent with BPH. The peripher al zone is obliterated by the hypertrophy of the central gland without significant visualization of t he peripheral zone of the prostate. The patient has a TURP defect in the central aspect of the prost ate. There is low T2 signal throughout the central gland without obvious focal suspicious low T2 sig nal lesion identified. No restricted diffusion is seen in the prostate. Soft tissue density fullnes s extends from the prostate into the base of the bilateral seminal vesicles. This may represent pros tatic tissue. Alternatively, this could represent diffuse prostate cancer extending up both seminal vesicles. The prostate capsule appears intact without significant disruption. No pelvic adenopathy is seen. No marrow signal abnormality is present. IMPRESSION: PIRADS 2 - low likelihood that a clinically significant cancer is present. Please note that there is soft tissue density extending towards the base of both seminal vesicles. This likely represents hyp ertrophic central gland extending towards the seminal vesicles. However, a diffuse [id number] mal ignancy within the central gland of the prostate is also a possibility, but thought to be less likely given the intact capsule of the prostate. POS: C
[2019-05-06] MEDS ORDERED: Gadobenate Dimeglumine 529 MG/1 ML (20ML VIAL) ONE (15:58)
== END 2019-05-06 08:04 | disposition home or self-care (01) ==
LOC: TBSIIMAG 08:03
PROVIDERS: ATTEND Urology
DX: C61 Malignant neoplasm of prostate (principal)
CPT/HCPCS: 72197; 82565

== ENCOUNTER 2019-05-06 10:25 | Outpatient (CLI) | payer BC ==
--- NOTE | 2019-05-06 14:57 | NM ---
HISTORY: Malignant neoplasm of prostate RADIOPHARMACEUTICAL: 33 mCi technetium 99m-MDP injected intravenously COMPARISON: None FINDINGS: There scattered degenerative activity in the appendicular skeleton. Focally increased uptake in a low er left costochondral junction is nonspecific. No other abnormal areas of tracer localization are seen in the skeleton to suggest metastatic disease . Tracer excretion through the kidneys is within normal limits. IMPRESSION: No scintigraphic evidence of osseous metastatic disease. Transcribed Date/Time: 05/06/2019 2:57 PM
== END 2019-05-06 10:26 | disposition home or self-care (01) ==
LOC: NM 10:25
PROVIDERS: ATTEND Urology
DX: C61 Malignant neoplasm of prostate (principal)
CPT/HCPCS: 72197; 78306; 82565; A9503; A9577